=== PATIENT | male | born 1960 | race Caucasian/White ===

== ENCOUNTER 2021-01-05 17:16 | Emergency (ER) | payer MEDICAID, OTHER ==
[~2021-01-05] VITALS: Ht 175.3 cm; Wt 106.6 kg
[2021-01-05 19:16] LABS: Hemoglobin 16.3 g/dL (13.5-17.5); Red Cell Distribution Width 13.4 % (11.8-14.3)
[2021-01-05 19:22] LABS: Basophils # (auto) 0.1 10 ^3/uL (0-0.2); Basophils % (auto) 0.9 % (0.0-2.0); Eosinophils # (auto) 0.2 10 ^3/uL (0-0.8); Eosinophils % (auto) 1.9 % (0.0-7.0); Hematocrit 47.8 % (41.0-53.0); Lymphocytes # (auto) 2.3 10 ^3/uL (0.4-5.4); Lymphocytes % (auto) 20.6 % (10.0-50.0); Mean Corpuscular Hemoglobin 30.8 pg (28.0-32.0); Mean Corpuscular Hgb Conc. 34.1 g/dL (32.0-36.0); Mean Corpuscular Volume 90.6 fL (80.0-100.0); Neutrophils # (auto) 7.4 10 ^3/uL (1.6-8.6); Neutrophils % (auto) 67.6 % (37.0-80.0); Red Blood Cells 5.28 10^6/uL (4.5-5.90)
[2021-01-05 19:23] LABS: Alanine Aminotransferase 41 U/L (16-61); Albumin 3.4 g/dL (3.4-5.0); Anion Gap 7 (5-15); BUN/Creatinine Ratio 18.8; Blood Urea Nitrogen 18 mg/dL (7-18); Calcium 8.5 mg/dL (8.5-10.1); Carbon Dioxide 29 mmol/L (21-32); Chloride 103 mmol/L (98-107); GFR African American 103 mL/min; GFR Non-African American 85 mL/min; Glucose 88 mg/dL (74-106); Potassium 3.7 mmol/L (3.5-5.1); Sodium 139 mmol/L (136-145)
[2021-01-05 19:28] LABS: Alkaline Phosphatase 102 U/L (45-117); Aspartate Aminotransferase 19 U/L (15-37); Bilirubin, Total 0.4 mg/dL (0.2-1.0); Total Protein 7.8 g/dL (6.4-8.2)
[2021-01-05] MEDS ORDERED: cloNIDine HCL 0.1 MG TAB ONE (20:56)
[2021-01-05] MEDS ORDERED: cloNIDine HCL 0.1 MG TAB PO ONE (21:00)
[2021-01-05 21:59] VITALS: BP 167/101
== END 2021-01-05 21:22 | disposition home or self-care (01) ==
LOC: ER 17:16
DX: M79.605 Pain in left leg (principal); R22.42 Localized swelling, mass and lump, left lower limb; J44.9 Chronic obstructive pulmonary disease, unspecified; I10 Essential (primary) hypertension; F17.210 Nicotine dependence, cigarettes, uncomplicated
CPT/HCPCS: 36415; 71046; 73700; 80053; 83880; 84484; 85025; 85652; 93005; 93971